=== PATIENT | male | born 1995 ===

== ENCOUNTER 2021-09-27 19:35 | Emergency (ER) | payer SELFPAY ==
[~2021-09-27] VITALS: Ht 182.9 cm; Wt 90.7 kg
--- NOTE | 2021-09-27 20:00 | NUR ---
Patient is a/ox4, NAD noted. Patient denies SOB
--- NOTE | 2021-09-27 20:06 | NUR ---
Dr Barrera in room for JOSE
[2021-09-27 20:36] LABS: HEMATOCRIT 39.7 % (36.7-47.1); MEAN CORPUSCULAR HEMOGLOBIN 31.9 uug (23.8-33.4); MEAN CORPUSCULAR VOLUME 90.6 fL (73.0-96.2); PLATELET COUNT (AUTO) 253 K/uL (152-348)
[2021-09-27 20:42] LABS: MAGNESIUM 1.7 mg/dL (1.8-2.4)
[2021-09-27 21:00] LABS: THYROID STIMULATING HORMONE 2.682 mIU/mL (0.358-3.740)
[2021-09-27] MEDS: MAGNESIUM SULFATE/D5W 100 ML IV SCH ×3 (21:00→21:44)
[2021-09-27 21:03] LABS: CARBON DIOXIDE 27 mmol/L (21-32); CHLORIDE 105 mmol/L (98-107); GLUCOSE 105 mg/dL (74-106); POTASSIUM 3.7 mmol/L (3.5-5.1); UREA NITROGEN, BLOOD 16 mg/dL (7-18)
[2021-09-27] MEDS ORDERED: MAGNESIUM SULFATE/D5W 100 ML ONE (21:03)
[2021-09-27] MEDS ORDERED: MAGNESIUM SULFATE/D5W 200 ML ONE (21:16)
--- NOTE | 2021-09-27 22:11 | NUR ---
Patient discharged to home in stable condition. Written and verbal after care instructions given. Patient verbalizes understanding of instructions. Stressed follow up or return to ER for worsening s/s. Patient is A/Ox4, NAD noted. Patient is able to walk with steady gait
[2021-09-27 22:12] VITALS: BP 139/78
== END 2021-09-27 22:12 | disposition home or self-care (01) ==
LOC: ER 19:39
DX: I49.1 Atrial premature depolarization (principal); E83.42 Hypomagnesemia; R03.0 Elevated blood-pressure reading, without diagnosis of hypertension
CPT/HCPCS: 36415; 80048; 83735; 84443; 84484; 85025; 93005; 96365; 99284; J3475 ×2; A4663